=== PATIENT | female | born 1985 | race African-American/Black ===

== ENCOUNTER 2018-10-01 13:49 | Emergency (ER) | payer OTHER ==
--- NOTE | 2018-10-01 14:00 | PDOC ---
Attending Attestation - Resident Resident Name: Manisha Alcantara - ED Attending Attestation I have performed the following: I have examined & evaluated the patient, The case was reviewed & discussed with the resident, I agree w/resident's findings & plan - HPI HPI: 10/01/18 14:40 Pt comes with reddish brown vaginal spotting and she worries that she has an STD ; doesn't think that she is . She had an unprotected sex encounter last week. . - Physicial Exam PE: 10/01/18 14:40 Agree with resident exam. Normal HEENT, heart, lungs, and flank exam. Normal pelvic exam. Minimal blood at the cervix.Pt has minimal pain at the RLQ and minimal guarding there. - Medical Decision Making 10/01/18 14:41 Pt will have a UA and UCG and we will send off GC/chlamydia and she will have a pelvic sono. 10/01/18 16:04 Urine is normal; not . Pt is at sono.
--- NOTE | 2018-10-01 14:00 | PDOC ---
History of Present Illness - General Chief Complaint: Vaginal Bleeding Stated Complaint: VAGINAL SPOTTING DENIES Time Seen by Provider: 10/01/18 13:54 - History of Present Illness Initial Comments: 33yo F with no significant PMH presenting with vaginal spotting and discharge and lower abdominal tenderness. Patient reports she has had spotting for a week , though this has never happened before. Last menstrual period was September 19. She reports an unprotected sexual encounter 1 week ago and requests STI testing. No history of STIs. No dysuria or hematuria. Last saw an earth moving machine operator doctor three years ago when she was living in [place]. Does not currently have an ob/ obstetrics gyn physician doctor. No fevers, chills, chest pain, or shortness of breath. Past History - Past Medical History Allergies/Adverse Reactions: Allergies Allergy/AdvReac Type Severity Reaction Status Date / Time No Known Allergies Allergy Verified 10/01/18 13:52 COPD: No - Suicide/Smoking/Psychosocial Hx Smoking History: Current some day smoker Have you smoked in the past 12 months: Yes Number of Cigarettes Smoked Daily: 1 Hx Alcohol Use: No Drug/Substance Use Hx: No Review of Systems - Review of Systems Comments:: Constitutional: no fever, no chills HEENT: no throat pain, no dysphagia Cardiovascular: no chest pain, no palpitations Respiratory: no cough, no shortness of breath Gastrointestinal: +abdominal pain, no nausea Genitourinary: no dysuria, +spotting Musculoskeletal: no myalgia, no arthralgia Skin: no rash, no itching Neurologic: no headache, no dizziness *Physical Exam - Physical Exam Comments: General: Awake, alert, and fully oriented, in no acute distress Head: No signs of trauma Eyes: EOMI, sclera anicteric ENT: Moist mucus membranes Neck: Normal ROM, supple Lungs: Lungs clear, Normal breath sounds Cardio: Regular rhythm, S1 and S2 present Abdomen: Soft, nontender. No guarding, no rebound, no masses Extremities: Normal range of motion, Distal pulses present SKIN: Warm, Dry, normal turgor Neurologic: Cranial nerves II through XII grossly intact. Normal speech Pelvic: External genitalia without erythema, exudate or discharge. Vaginal vault is with white physiologic discharge. Cervix is of normal color without lesion. The os is closed. Scant bleeding noted. Uterus is noted to be of normal size and nontender. No cervical motion tenderness is seen. No masses are palpated. Medical Decision Making - Medical Decision Making 33yo F with no significant PMH presenting with vaginal spotting and discharge and lower abdominal tenderness. DDX includes but not limited to Mittelschmerz, menstruation, abnormal uterine bleeding due to , ovarian cyst, ovarian torsion, UTI Normal pelvic exam with scant bleeding. Will send UA to test for UTI. GC test. Ultrasound to rule out ovarian cyst/torsion. 10/01/18 14:29 Ultrasound without acute pathology: Normal size uterus with normal thickness of the endometrial stripe. Tiny nabothian cysts in the cervix. Small simple cyst/ dominant follicle in the left ovary measuring 1.3 x 1 cm. Both ovaries appear otherwise morphologically unremarkable with likely arterial flow only detected. If clinically concerned correlation with transvaginal ultrasound examination of the pelvis could be obtained for further evaluation. Negative UA Negative test Patient discharged with referral to earth moving machine operator 10/01/18 17:36 *DC/Admit/Observation/Transfer Diagnosis at time of Disposition: Lower abdominal pain, Vaginal spotting - Discharge Dispostion Disposition: HOME Condition at time of disposition: Stable - Referrals Schedule a call back: result of GC Referrals: Neva Shea MD [Staff Physician] - Lisa Mccormack MD [Staff Physician] - Tiffany Hand DO [Staff Physician] - - Patient Instructions Printed Discharge Instructions: DI for Vaginal Discharge Additional Instructions: You came into the ED for lower abdominal pain and vaginal spotting. test was negative. Ultrasound shows an ovarian cyst on the left side. We have referred you to an earth moving machine operator specialist. Since you have not seen one in 3 years, you should call and make an appointment for your annual exam and to further evaluate the vaginal spotting. You can take [id number] tylenol and motrin for pain. Follow the instructions on the medication bottle. Seek immediate medical attention if you experience: -heavy bleeding (more than two pads per hour for two hours) -severe pain -lightheadedness -shortness of breath -high fever -any other concerning symptoms If you think you have an emergency, call for medical help right away. - Post Discharge Activity
[2018-10-01 14:04] VITALS: BP 127/74; PULSE 68; TEMP 98.4; BMI 29.0
[2018-10-01 14:38] LABS: PH,URINE 6.5 (4.5-8); URINE APPEARANCE Clear; URINE BILIRUBIN Negative (NEGATIVE); URINE COLOR Amber; URINE GLUCOSE (UA) Negative (NEGATIVE); URINE KETONE Negative (NEGATIVE); URINE LEUK ESTERASE Negative (NEGATIVE); URINE NITRITE Negative (NEGATIVE); URINE PROTEIN Negative (NEGATIVE); URINE UROBILINOGEN 0.2 (0.2-1.0)
== END 2018-10-01 17:24 | disposition home or self-care (01) ==
LOC: FER 13:49
DX: R10.30 Lower abdominal pain, unspecified (principal); N93.9 Abnormal uterine and vaginal bleeding, unspecified
CPT/HCPCS: 36415; 76856-TC; 81003; 84703; 87086; 87491; 87591; 99282-25